=== PATIENT | male | born 1995 | race Caucasian/White ===

== ENCOUNTER 2022-09-15 12:27 | Emergency (ER) | payer SELFPAY ==
[2022-09-15] MEDS ORDERED: Lidocaine 1% 10 ML MDV INJECT ONE (13:38)
[2022-09-15] MEDS ORDERED: Diphtheria,Pertussis(Acell),Tetanus Vaccine 0.5 ML Syringe IM ONE (13:41)
[2022-09-15] MEDS ORDERED: Cephalexin 500 MG Cap PO ONE (14:41)
== END 2022-09-15 15:30 | disposition home or self-care (01) ==
LOC: JD.ED 12:27
DX: S91.311A Laceration without foreign body, right foot, initial encounter (principal); Z79.899 Other long term (current) drug therapy; Z23 Encounter for immunization; W18.40XA Slipping, tripping and stumbling without falling, unspecified, initial encounter
CPT/HCPCS: 12002; 90471; 90715; 99282; A9270

== ENCOUNTER 2022-10-05 16:50 | Emergency (ER) | payer SELFPAY | END 2022-10-05 20:29 | disposition home or self-care (01) | LOC: JD.ED 16:50 | DX: M79.671 Pain in right foot (principal) | CPT/HCPCS: 99283 ==